=== PATIENT | female | born 1975 | race African-American/Black ===

== ENCOUNTER → 2018-06-30 | Outpatient (CLI) | payer SELFPAY ==
--- NOTE | 2018-06-30 16:14 | RADIOLOGY REPORT (SQ) ---
EXAM DESCRIPTION: U/S [id number] TRNABD 1GES W/ODOP COMPLETED DATE/TIME: 06/30/2018 3:01 pm REASON FOR STUDY: ENCNTR FOR SUPRVSN OF NORMAL FIRST PREG, FIRST TRIMESTER Z34.01 ENCNTR FOR SUPRVS N OF NORMAL FIRST PREG, FIRST TRIMES COMPARISON: None. TECHNIQUE: Transabdominal static and realtime grayscale images acquired of the pelvis. Additional se lected spectral and color Doppler images recorded. All images stored on PACs. bHCG: Not available. CLINICAL DATES: 9 weeks 0 days LIMITATIONS: None. FINDINGS: FETUS: Single Living intrauterine . ULTRASOUND EGA: 9 weeks 1 day ULTRASOUND ZARINA: 02/01/2019 EFW: Not applicable less than 20 weeks. CRL: 2.5 cm FHR: 160 beats per minute. SURVEY: No visualized anomalies. AMNIOTIC FLUID: Adequate amount. PLACENTA: Not yet developed due to early gestation. SUBCHORIONIC BLEED: No. SIZE OF BLEED: Not applicable. UTERUS: Multiple fibroids measuring up to 6 cm. CERVICAL LENGTH: 3.1 cm. Closed. RIGHT ADNEXA: Normal ovary with normal vascular flow. No adnexal free fluid. No adnexal masses. LEFT ADNEXA: Ovary not identified due to poor acoustical window. No adnexal free fluid. No adnexal masses. FREE FLUID: None. OTHER: No other significant finding. IMPRESSION: LIVING INTRAUTERINE . EGA 9 weeks 1 day. Trimester of : First - 0 to 13 weeks. TECHNICAL DOCUMENTATION: JOB ID: [id number] [employer]- All Rights Reserved Reading location - IP/workstation name: [email or web address]
== END ==
LOC: RAD 13:56
PROVIDERS: ATTEND Midwife
DX: Z34.01 Encounter for supervision of normal first pregnancy, first trimester (principal)
CPT/HCPCS: 76801

== ENCOUNTER → 2018-08-07 | Outpatient (CLI) | payer MEDICAID ==
--- NOTE | 2018-08-07 15:57 | RADIOLOGY REPORT (SQ) ---
EXAM DESCRIPTION: U/S OB 14+ TRNABD 1GES W/O DOP COMPLETED DATE/TIME: 08/07/2018 3:16 pm REASON FOR STUDY: O26.849 UTERINE SIZE-DATE DISCREPANCY, UNSPECIFIED TRIMESTER O26.849 UTERINE SIZE -DATE DISCREPANCY, UNSPECIFIED TRIMESTER COMPARISON: 06/30/2018 TECHNIQUE: Static and Dynamic grayscale imaging performed of gravid uterus using transabdominal appr oach. Additional selected color Doppler and spectral images recorded. All stored on PACS. LIMITATIONS: None. FINDINGS: FETUSES SEEN:1 EGA: 15 weeks 3 days Calculated using BPD,FL,HC,AC documented on images. No discrepancy with clinica l dates. ZARINA: 01/26/2019 EFW: Not calculated in grams PERCENTILE: Not calculated LV P: 5 cm PLACENTA: Anterior GRADE: I PRESENTATION: Cephalic. ANATOMY: HEART RATE: 149 beats per minute. FOUR CHAMBER HEART: Not confirmed THREE VESSEL CORD: Yes. CORD INSERTION: Visualized. KIDNEYS AND BLADDER: Bladder normal. Kidneys not well seen. STOMACH: Visualized. Appears normal. SPINE: Not well seen. BRAIN AND LATERAL VENTRICLES: Not well seen. OTHER: Left ovary measured 3.8 x 1.9 x 2.9 cm with positive blood flow. Uterine fibroids are present . 1 appears to be pedunculated and measures 6.9 cm in largest diameter. MATERNAL ADNEXA: Maternal ovaries not visualized. CERVICAL LENGTH: 4.8 cm. Closed. OTHER: No other significant finding. IMPRESSION: Live intrauterine gestation ESTIMATED GESTATIONAL AGE 15 weeks 3 days No visualized anomalies, but evaluation anatomy was slightly limited. Uterine fibroids. Trimester of : Second trimester - 13 weeks 1 day to 27 weeks 6 days. TECHNICAL DOCUMENTATION: JOB ID: [id number] [employer]- All Rights Reserved Reading location - IP/workstation name: [email or web address]
== END ==
LOC: RAD 12:50
PROVIDERS: ATTEND Midwife
DX: O26.849 Uterine size-date discrepancy, unspecified trimester (principal); Z3A.00 Weeks of gestation of pregnancy not specified
CPT/HCPCS: 76805

== ENCOUNTER 2019-01-19 10:42 | Inpatient (IN) | payer MEDICAID ==
--- NOTE | 2019-01-19 15:19 | RADIOLOGY REPORT (SQ) ---
EXAM DESCRIPTION: U/S PROFILE W/O STRESS COMPLETED DATE/TIME: 01/19/2019 3:06 pm REASON FOR STUDY: nonreactive NST COMPARISON: 08/07/2018 TECHNIQUE: Limited gracia-scale realtime and static images of the fetus to measure specified parameter s. LIMITATIONS: None. FINDINGS: HEART RATE: 137 beats per minute. EVER: 21.7 cm. BREATHING MOVEMENT: 0 point MOVEMENT: 0 point POSTURE AND TONE: 0 point dx QUALITATIVE EVER: 2 points. OTHER: No other significant finding. IMPRESSION: BIOPHYSICAL PROFILE: 8. Trimester of : Third - 28 weeks to delivery COMMENT: BREATHING MOVEMENTS: 2 POINTS: PRESENT 0 POINTS: ABSENT MOTION: 2 POINTS: PRESENT 0 POINTS: ABSENT TONE: 2 POINTS: PRESENT 0 POINTS: ABSENT AMNIOTIC FLUID VOLUME: 2 POINTS: LARGEST POCKET GREATER THAN 2 CM DEPTH. 0 POINTS: NO POCKET OF 2 CM. TECHNICAL DOCUMENTATION: JOB ID: [id number] [employer]- All Rights Reserved Reading location - IP/workstation name: [email or web address]
[2019-01-19] MEDS ORDERED: DINOPROSTONE 10 MG VAGINAL INSERT.SR PV PRN (15:44)
[2019-01-19] MEDS ORDERED: RINGERS SOLUTION,LACTATED 300 ML IV ONE (15:44)
--- NOTE | 2019-01-19 15:51 | Admission Physical ---
Datetime Report Generated by CPN: 01/19/2019 15:50 CURRENT ADMISSION Chief Complaint: Sent from OB Office for Evaluation and Treatment - Please Specify Chief Complaint Other: Sent from A for repeat NST Indication for Induction: Indicated by Testing Admit Impression : No Active Labor Admit Impression- Other: Pt had approximately 3 late decelerations in the course of 4 hrs of monitoring, otherwise Cat 1 tracing. BPP 2/8 today. Admit Plan: Initiate Labor Induction Protocol Admit Plan- Other: AMA +AFP, Neg NIPS 6cm Fibroid ALLERGIES Medication Allergies: Yes Medication Allergies: erythromycin base (01/19/2019) Latex: No Latex Allergies Food Allergies: lactose intolerant OBSTETRICAL HISTORY EDC: 02/02/2019 00:00 : 1 Para: 0 Term: 0 : 0 SAB: 0 IAB: 0 Ectopic: 0 Livin Cesareans: 0 VBACs: 0 Multiple Births: 0 Gestational Diabetes: No Incompetent Cervix: No Infertility: No SEE RECORDS Alcohol: No Marijuana : No Cocaine: No Other Illicit Drugs: No Cigarettes: Never Smoker. [id number] MEDICAL HISTORY Kidney Disease: Yes Medical History Comments: PCOS, UTIs, anemia, PHYSICAL EXAM General: Normal HEENT: Deferred Neurologic: Deferred Thyroid: Deferred Heart: Normal Lungs: Normal Breast: Deferred Back: Deferred Abdomen: Normal Genitourinary Exam: Normal Extremities: Normal DTRs: Deferred Pelvic Type: Adequate Vital Signs: Reviewed VAGINAL EXAM Dilatation: 0 Effacement: 0 Station: -3 MEMBRANES Membranes: Intact FETUS A EGA: 38.0 Admit Comment: GBS Neg PLANS FOR LABOR AND DELIVERY Labor and Delivery: None Pain Management: Epidural Feeding Preference: Breast Benefit of Breast Feed Discussed: Yes Circumcision: N/A INFORMED CONSENT Assignment: Cheri Goff MD Signature: with User ID: [email or web address] : with User ID: [email or web address]
[2019-01-19 16:32] LABS: APPEARANCE,URINE SLIGHTLY-CLOUDY; BILIRUBIN,URINE NEGATIVE (NEGATIVE); COLOR,URINE YELLOW; GLUCOSE, URINE 50 mg/dL (NEGATIVE); KETONES,URINE NEGATIVE (NEGATIVE); LEUKOCYTE ESTERASE,URINE NEGATIVE (NEGATIVE); NITRITE,URINE NEGATIVE (NEGATIVE); PROTEIN,URINE NEGATIVE (NEGATIVE); URINE SPECIFIC GRAVITY 1.006; UROBILINOGEN,URINE NEGATIVE mg/dL (<2.0)
[2019-01-19] MEDS ORDERED: DINOPROSTONE 10 MG VAGINAL INSERT.SR ONE (16:49)
[2019-01-19 16:55] LABS: URINE AMPHETAMINES SCREEN NEGATIVE; URINE BARBITURATES SCREEN NEGATIVE; URINE BENZODIAZEPINES SCREEN NEGATIVE; URINE COCAINE SCREEN NEGATIVE; URINE MARIJUANA (THC) SCREEN NEGATIVE; URINE METHADONE SCREEN NEGATIVE; URINE PHENCYCLIDINE SCREEN NEGATIVE
[2019-01-19 17:33] LABS: HEMATOCRIT 32.2 % (36.0-47.0); HEMOGLOBIN 10.2 g/dL (12.0-15.5); MEAN CORPUSCULAR HEMOGLOBIN 23.7 pg (27.0-33.4); MEAN CORPUSCULAR HGB CONC 31.8 g/dL (32.0-36.0); MEAN CORPUSCULAR VOLUME 74 fl (80-97); PLATELET COUNT 230 10^3/uL (150-450); RED BLOOD COUNT 4.33 10^6/uL (3.72-5.28); RED CELL DISTRIBUTION WIDTH 20.4 % (11.5-14.0)
[2019-01-19 17:55] LABS: ABSOLUTE LYMPHOCYTES# (MANUAL) 2.3 10^3/uL (0.5-4.7); ABSOLUTE MONOCYTES # (MANUAL) 0.3 10^3/uL (0.1-1.4); BAND NEUTROPHILS % (MANUAL) 2 % (3-5); BASOPHILS % (MANUAL) 0 % (0-2); EOSINOPHILS % (MANUAL) 2 % (0-6); LYMPHOCYTES % (MANUAL) 39 % (13-45); METAMYELOCYTES % (MANUAL) 1 % (0); MONOCYTES % (MANUAL) 5 % (3-13); SEGMENTED NEUTROPHILS % (MAN) 51 % (42-78); TOTAL CELLS COUNTED 100
[2019-01-19 17:56] LABS: ANISOCYTOSIS 2+; OVALOCYTES SLIGHT; PLATELET COMMENT ADEQUATE; POIKILOCYTOSIS SLIGHT; POLYCHROMASIA SLIGHT
[2019-01-20] MEDS ORDERED: MISOPROSTOL 0.1 MG TABLET PO ONE (06:49)
[2019-01-20] MEDS ORDERED: MISOPROSTOL 0.1 MG TABLET PV ONE (06:50)
[2019-01-20] MEDS ORDERED: MISOPROSTOL 0.1 MG TABLET ONE (11:02)
[2019-01-20] MEDS ORDERED: PHENYLEPHRINE HCL INJ/PF 10 MG/1 ML SDV ONE (15:55)
[2019-01-20] MEDS ORDERED: EPHEDRINE SULFATE INJ 50 MG/1 ML AMPULE ONE (15:55)
[2019-01-20] MEDS ORDERED: FENTANYL CITRATE INJ/PF 100 MCG/2 ML AMPUL ONE (15:55)
[2019-01-20] MEDS ORDERED: BUPIVACAINE HCL 0.25 % INJ/PF (2.5 MG/1 ML) 30 ML VIAL ONE (15:56)
[2019-01-20] MEDS ORDERED: FENTANYL/BUPIVACAINE/NS/PF 300 MCG/150 ML RTUINJ EPI ONE (15:56)
[2019-01-20] MEDS ORDERED: LIDOCAINE 1% INJ-PF (10 MG/ML) 30 ML SDV ONE (15:57)
[2019-01-20] MEDS ORDERED: OXYTOCIN 10 UNIT/ML VIAL ONE (15:57)
[2019-01-20] MEDS ORDERED: MISOPROSTOL 0.2 MG TABLET ONE (15:57)
[2019-01-20] MEDS ORDERED: OXYTOCIN/NORMAL SALINE 0 UNIT/0 ML RTUINJ ONE (15:58)
[2019-01-20] MEDS: RINGERS SOLUTION,LACTATED 1,000 ML IV PRN ×2 (16:43→17:49)
[2019-01-20] MEDS ORDERED: SODIUM BICARBONATE 8.4% INJ 50 MEQ/50 ML DISP.SYRIN ONE (21:36)
[2019-01-20] MEDS ORDERED: LIDOCAINE 2%/EPINEPHRINE INJ 20 ML VIAL ONE (21:36)
[2019-01-21] MEDS ORDERED: NA PHOS,M-B/NA PHOS,DI-BA (ADULT) 133 ML ENEMA PR ONE ×2 (02:42→02:43)
[2019-01-21] MEDS ORDERED: FENTANYL/BUPIVACAINE/NS/PF 300 MCG/150 ML RTUINJ EPI ONE (03:31)
[2019-01-21] MEDS ORDERED: CEFAZOLIN INJ 1 GM VIAL ONE (04:44)
[2019-01-21] MEDS ORDERED: CITRIC ACID/SODIUM CITRATE ORAL SOLN 15 ML UDCUP ONE (04:44)
[2019-01-21] MEDS ORDERED: AZITHROMYCIN INJ 500 MG VIAL IV ONE (04:46)
[2019-01-21] MEDS ORDERED: ONDANSETRON HCL INJ/PF 4 MG/2 ML SDV ONE (04:51)
[2019-01-21] MEDS ORDERED: PROPOFOL INJ 200 MG/20 ML VIAL IV ONE (04:51)
[2019-01-21] MEDS ORDERED: OXYTOCIN 10 UNIT/ML VIAL ONE (04:51)
[2019-01-21] MEDS ORDERED: ACETAMINOPHEN 1,000 MG/100 ML RTUPB IV ONE (04:51)
[2019-01-21] MEDS ORDERED: KETOROLAC TROMETHAMINE INJ/PF 30 MG/1 ML SDV ONE (04:51)
[2019-01-21] MEDS ORDERED: SUCCINYLCHOLINE CHLORIDE INJ 200 MG/10 ML VIAL ONE (04:51)
--- NOTE | 2019-01-21 04:51 | PDOC PROGRESS REPORT ---
Subjective Progress Note for:: 01/21/19 Subjective:: Called to patients bedside due to repetitive late decelerations in heart tracing. No response to fluids, O2 and repositiioning. No pitocin running. Regular ctx and epidural is not managing pain any longer. Discussed tracing with patient and her mother. Discussed CD and risk and benefits. Recommend due to heart tracing iwht continued late decelera tions. Consent signed. Anesthesia and OR notified. Reason For Visit: IUP @ 38 WEEKS,IOL Physical Exam - Physical Exam Vital Signs: Intake & Output 01/19/19 01/20/19 01/21/19 06:59 06:59 06:59 Intake Total 138 Balance 138 Weight 73.6 kg Result Laboratory Results: 01/19/19 17:07 Impressions: Stress Test 01/19/19 11:45 IMPRESSION: BIOPHYSICAL PROFILE: 05/23. Trimester of : Third - 28 weeks to delivery Assessment & Plan - Time Time Spent with patient: Less than 15 minutes
[2019-01-21] MEDS ORDERED: FENTANYL CITRATE INJ/PF 100 MCG/2 ML AMPUL ONE (04:52)
[2019-01-21] MEDS: RINGERS SOLUTION,LACTATED 1,000 ML IV PRN ×2 (04:55→17:44)
[2019-01-21] MEDS ORDERED: OXYTOCIN/NORMAL SALINE 20 UNIT/1,000 ML RTUINJ IV PRN ×2 (06:29→08:37)
[2019-01-21] MEDS ORDERED: ZOLPIDEM TARTRATE 5 MG TABLET PO PRN (06:29)
[2019-01-21] MEDS ORDERED: ACETAMINOPHEN 650 MG SUPP.RECT PR PRN ×2 (06:29→09:30)
[2019-01-21] MEDS ORDERED: PSEUDOEPHEDRINE HCL 30 MG TABLET PO PRN (06:29)
[2019-01-21] MEDS ORDERED: DIPH/PERTUSS(ACELL)/TETANUS VAC/PF 0.5 ML SYR (>=10YO) IM PRN ×2 (06:29→08:37)
[2019-01-21] MEDS ORDERED: GLYCERIN/WITCH HAZEL LEAF 1 EACH MED..WIPE TP PRN (06:29)
[2019-01-21] MEDS ORDERED: BENZOCAINE/MENTHOL AEROSOL SPRAY 56 ML TOP PRN (06:29)
[2019-01-21] MEDS ORDERED: PROMETHAZINE HCL INJ 25 MG/1 ML VIAL IV PRN ×2 (06:29→08:37)
[2019-01-21] MEDS ORDERED: PROMETHAZINE HCL 25 MG SUPP.RECT PR PRN (06:29)
[2019-01-21] MEDS ORDERED: PROMETHAZINE HCL 25 MG TABLET PO PRN (06:29)
[2019-01-21] MEDS ORDERED: ACETAMINOPHEN WITH CODEINE #3 TABLET PO PRN ×2 (06:29)
[2019-01-21] MEDS ORDERED: DIPHENHYDRAMINE HCL 25 MG CAPSULE PO PRN (06:29)
[2019-01-21] MEDS ORDERED: NA PHOS,M-B/NA PHOS,DI-BA (ADULT) 133 ML ENEMA PR PRN (06:29)
[2019-01-21] MEDS ORDERED: DIBUCAINE 1% OINTMENT 56 GM TP PRN (06:29)
[2019-01-21] MEDS ORDERED: MAGNESIUM HYDROXIDE SUSP 30 ML UDCUP PO PRN (06:29)
[2019-01-21] MEDS ORDERED: MEASLES,MUMPS&RUBELLA VACC/PF 0.5 ML VIAL SUBCUT PRN ×2 (06:29→08:37)
--- NOTE | 2019-01-21 06:52 | Operative Report ---
Operative Report DATE OF SURGERY: 01/21/19 PREOPERATIVE DIAGNOSIS: IUP at 38.2 wks EGA. Non-reassuring testing: BPP 2/8. Failure to progress in labor. Non-reassuring heart tracing: repetetive decelerations POSTOPERATIVE DIAGNOSIS: Same as above OPERATION: Primary Section SURGEON: BERT BAL 1ST MANAGER OF SCHOOL: MOLLY HERRERA ANESTHESIA: GA TISSUE REMOVED OR ALTERED: Placenta COMPLICATIONS: None ESTIMATED BLOOD LOSS: 1,100 INTRAOPERATIVE FINDINGS: Uterus with multiple fibroids-largest was 6 cm on left fundus. Bilateral fallopian tubes and ovaries appear normal. Viable female in vertex presentation deep in pelvis. Anterior placenta. PROCEDURE: IV fluids: per anesthesia record Urinary output: per anesthesia record- clear yellow Findings: Uterus with multiple fibroids largest on left fundus measuring 6 cm. Bilateral fallopian tubes and ovaries normal. Anterior placenta. Viable female in vertex presentation. Position: To recovery room in stable condition Description of procedure: The patient was taken to the operating room and general anesthesia was administered and found to be adequate. She was then placed on the OR table in the supine position with a slight leftward tilt. Patient was prepped and draped in usual sterile fashion. Ancef 2 gms was given IV prior to the procedure for infection prophylaxis. Timeout was taken. A Pfannenstiel skin incision was then made approximately 3 cm above the pubic symphysis and carried down to level the rectus fascia. The rectus fascia was then nicked in the midline with a scalpel and the fascial incision was extended laterally with use of curved Flor scissors. The rectus fascia was then grasped with 2 Kocker clamps elevated and the underlying rectus muscle was dissected off both bluntly and sharply. Any bleeding controlled with cautery. The rectus muscles were then split in the midline and the peritoneum was entered. The peritoneal incision was then extended by manually stretching the peritoneum. The bladder blade was positioned. A bladder flap was created using pickups and metzenbaum scissors. The bladder was noted to be out of harm's way. A scalpel was then used in the lower uterine for the hysterotomy, slowly until amniotomy was obtained a small amount of fluid was noted. Placenta was anterior. The uterine incision was then manually stretched. The was noted to be in vertex postion -deep in the pelvis. Using a hand deep in pelvis and food service assistant from RN below, the head was elevated and brought to the hysterotomy incision. The head then delivered with minmal difficulty. The shoulders and the rest of the body followed immediately. The cord was cut clamped and the was handed off to the nurse awaiting. Infant was crying prior to hand off. The placenta was manually delivered. Using a lap gauze the uterus was cleared of all clots and debris. I attempted to exteriorize the uterus but due to the size of fibriods the uterus was left in place. A bladder blade was repositioned. The uterine incision was then closed with 0 Chromic suture in a running locked fashion. A second layer of the same suture was used in a running locked imbricated fashion. The uterine incision was inspected and noted to be hemostatic. Retractor was removed. The posterior aspect of the uterus was then inspected and anatomy was seen as above. The uterus was returned to its normal anatomic position within the abdominal cavity. Warm saline irrigation was used to clear all clots and debris from the abdomen. The uterine incision was inspected once more and noted to remain hemostatic. The bladder blade was removed and the peritoneum was closed with 2-0 chromic in a running fashion. The rectus muscles were then reapproximated and the rectus fascia was closed with a #1 PDS in a running fashion. The subcutaneous tissue was then inspected and any bleeding was controlled with Bovie electrocautery. The subcutaneous tissue was then closed with 2-0 Plain Gut suture in a running fashion. The skin was then closed with 4-0 Monocryl in a running subcuticular fashion. The skin incision was then clean dried and Dermabond was applied over the skin incision. All instrument sponge and needle counts were correct x3 for the procedure the patient tolerated the procedure well. She will proceed to recovery room in stable condition
[2019-01-21] MEDS ORDERED: OXYTOCIN/NORMAL SALINE 20 UNIT/1,000 ML RTUINJ ONE (07:56)
[2019-01-21] MEDS ORDERED: SIMETHICONE 80 MG TAB.CHEW PO PRN (08:37)
[2019-01-21] MEDS ORDERED: DEXTROSE 50%-WATER 25 GM/50 ML DISP.SYRIN IV PRN ×2 (08:37)
[2019-01-21] MEDS ORDERED: DEXTROSE 40% GEL 15 GM TUBE PO PRN ×2 (08:37)
[2019-01-21] MEDS ORDERED: HYDROMORPHONE HCL INJ/PF 2 MG/ML AMPULE IV PRN (08:37)
[2019-01-21] MEDS ORDERED: ACETAMINOPHEN 325 MG TABLET PO PRN (08:37)
[2019-01-21] MEDS ORDERED: GLUCAGON,HUMAN RECOMB 1 MG INJ SUBCUT PRN (08:37)
[2019-01-21] MEDS ORDERED: OXYCODONE-ACETAMINOPHEN 5-325 MG TABLET PO PRN ×2 (08:37)
[2019-01-21] MEDS ORDERED: DOCUSATE SODIUM 100 MG CAPSULE PO SCH (10:00)
[2019-01-21] MEDS ORDERED: PRENATAL VITAMIN W DHA CAPSULE PO SCH (10:00)
[2019-01-21] MEDS: FAMOTIDINE 20 MG TABLET PO SCH ×2 (10:07→23:09)
[2019-01-21] MEDS: FERROUS SULFATE 325 MG TABLET PO SCH ×2 (10:07→17:31)
[2019-01-21] MEDS: DOCUSATE SODIUM 100 MG CAPSULE PO SCH ×2 (10:08→17:31)
[2019-01-21] MEDS: PRENATAL VITAMIN W DHA CAPSULE PO SCH (10:08)
[2019-01-21] MEDS: SENNOSIDES/DOCUSATE 8.6-50 MG 1 EACH TABLET PO SCH (10:08)
[2019-01-21] MEDS: KETOROLAC TROMETHAMINE INJ/PF 30 MG/1 ML SDV IV SCH ×2 (13:16→23:09)
[2019-01-21] MEDS ORDERED: IBUPROFEN 800 MG TABLET PO SCH ×2 (14:00)
[2019-01-22] MEDS: IBUPROFEN 800 MG TABLET PO SCH ×3 (06:10→22:36)
[2019-01-22 06:28] LABS: HEMATOCRIT 23.2 % (36.0-47.0); MEAN CORPUSCULAR HGB CONC 32.5 g/dL (32.0-36.0); MEAN CORPUSCULAR VOLUME 74 fl (80-97); PLATELET COUNT 189 10^3/uL (150-450); RED BLOOD COUNT 3.14 10^6/uL (3.72-5.28); RED CELL DISTRIBUTION WIDTH 23.4 % (11.5-14.0)
[2019-01-22 06:37] LABS: WHITE BLOOD COUNT 16.8 10^3/uL (4.0-10.5)
[2019-01-22 06:43] LABS: HEMOGLOBIN 7.5 g/dL (12.0-15.5)
[2019-01-22] MEDS ORDERED: INFLUENZA QUAD (6MOS+) 2019-20 VAC 0.5 ML SYR IM ONE (08:00)
--- NOTE | 2019-01-22 09:21 | PDOC PROGRESS REPORT ---
Subjective-OB Progress Note for:: 01/22/19 Subjective: Preparing for blood transfusion Physical Exam (OB) Vital Signs: Temp Pulse Resp BP Pulse Ox 98.7 F 90 16 104/56 L 96 01/22/19 07:43 01/22/19 07:43 01/22/19 07:43 01/22/19 07:43 01/22/19 07:43 Intake & Output 01/21/19 01/22/19 01/23/19 06:59 06:59 06:59 Intake Total 1138 1400 Output Total 1700 Balance 1138 -300 - General Note:: Flat affect - PIH/Pre-Eclampsia Headache: Absent Epigastric Pain: No Visual Changes: No - Dressing Removed: No - opsite D&I Incision: Well Approximated - Lochia Lochia Amount: Small 10-25 ml Lochia Color: Rubra/Red - Abdomen Description: Tender, Soft, Round Hernia Present: No Bowel Sounds: Normoactive Flatus Presence: Present Stool: No Fundal Description: Firm, Midline Fundal Height: u/u - u/2 > 4/u*- Describe: multiple fibroids Objective-Diagnostic Laboratory: 01/22/19 05:31 01/19/19 01/22/19 17:07 05:31 WBC 16.8 H D RBC 3.14 L Hgb 7.5 L D Hct 23.2 L MCV 74 L MCH 24.0 L MCHC 32.5 RDW 23.4 H Plt Count 189 Blood Type A POSITIVE Antibody Screen NEGATIVE
[2019-01-22] MEDS: FAMOTIDINE 20 MG TABLET PO SCH ×2 (09:29→22:36)
[2019-01-22] MEDS: SENNOSIDES/DOCUSATE 8.6-50 MG 1 EACH TABLET PO SCH (09:30)
[2019-01-22] MEDS: PRENATAL VITAMIN W DHA CAPSULE PO SCH (09:30)
[2019-01-22] MEDS: DOCUSATE SODIUM 100 MG CAPSULE PO SCH ×2 (09:30→17:36)
[2019-01-22] MEDS: FERROUS SULFATE 325 MG TABLET PO SCH (17:48)
[2019-01-23] MEDS: IBUPROFEN 800 MG TABLET PO SCH ×2 (05:10→13:53)
[2019-01-23 06:41] LABS: HEMATOCRIT 29.5 % (36.0-47.0); MEAN CORPUSCULAR HEMOGLOBIN 25.3 pg (27.0-33.4); MEAN CORPUSCULAR HGB CONC 32.8 g/dL (32.0-36.0); MEAN CORPUSCULAR VOLUME 77 fl (80-97); PLATELET COUNT 201 10^3/uL (150-450); RED BLOOD COUNT 3.82 10^6/uL (3.72-5.28); RED CELL DISTRIBUTION WIDTH 22.9 % (11.5-14.0); WHITE BLOOD COUNT 14.9 10^3/uL (4.0-10.5)
[2019-01-23 06:43] LABS: HEMOGLOBIN 9.7 g/dL (12.0-15.5)
[2019-01-23] MEDS: FAMOTIDINE 20 MG TABLET PO SCH (09:50)
[2019-01-23] MEDS: SENNOSIDES/DOCUSATE 8.6-50 MG 1 EACH TABLET PO SCH (09:50)
[2019-01-23] MEDS: PRENATAL VITAMIN W DHA CAPSULE PO SCH (09:50)
[2019-01-23] MEDS: DOCUSATE SODIUM 100 MG CAPSULE PO SCH (09:50)
[2019-01-23] MEDS: FERROUS SULFATE 325 MG TABLET PO SCH (09:51)
--- NOTE | 2019-01-23 12:02 | PDOC DISCHARGE SUMMARY ---
Impression - Admit/DC Date/PCP Admission Date/Primary Care Provider: 01/19/19 15:10 ROXANA NAQVI MD Discharge Date: 01/23/19 - Discharge Diagnosis (1) Acute blood loss anemia Is this a current diagnosis for this admission?: Yes (2) Blood transfusion during current hospitalisation Is this a current diagnosis for this admission?: Yes (3) Delivery by emergency caesarean section Is this a current diagnosis for this admission?: Yes (4) Non-reassuring heart rate or rhythm affecting management of fetus Is this a current diagnosis for this admission?: Yes (5) Is this a current diagnosis for this admission?: Yes - Additional Information Discharge Diet: Regular Discharge Activity: No Lifting/Push/Pulling, Pelvic Rest, No tub bath Referrals: [facility] [Provider Group] (Please call and schedule a 1 week follow up for an incision check.) Prescriptions: Ibuprofen [Motrin 800 mg Tablet] 800 mg PO Q8HP PRN #60 tablet PRN Reason: Oxycodone HCl/Acetaminophen [Percocet 5-325 mg Tablet] 1 tab PO Q4HP PRN #30 tablet PRN Reason: Home Medications: Vits96/Iron Fum/Folic [ Tablet] 1 tab PO DAILY 01/19/19 Docusate Sodium [Colace 100 mg Capsule] 100 mg PO BID capsule 01/23/19 Ferrous Sulfate [Feosol 325 mg Tablet] 325 mg PO BID tablet 01/23/19 Ibuprofen [Motrin 800 mg Tablet] 800 mg PO Q8HP PRN #60 tablet 01/23/19 Oxycodone HCl/Acetaminophen [Percocet 5-325 mg Tablet] 1 tab PO Q4HP PRN #30 tablet 01/23/19 HPI Gestational Age: 38+2 Reason(s) for Admission: Induction of Labor - for nonreassuring assessment-NR NST followed by BPP 05/23 Procedures: NST, Other - BPP Intrapartum Procedure(s): : Low Cervical, Transverse Hospital Course Hospital Course: admitted for IOL secondary to nonreassuring surveillance. failure to progress, the underwent primary c/s for viable female . QBL was 1313, HGB 7.5 post , she recieved blood transfusion with now HGB of 9.7 and stable Results Laboratory Results: WBC 14.9 10^3/uL (4.0-10.5) H 01/23/19 05:58 RBC 3.82 10^6/uL (3.72-5.28) 01/23/19 05:58 Hgb 9.7 g/dL (12.0-15.5) L D 01/23/19 05:58 Hct 29.5 % (36.0-47.0) L 01/23/19 05:58 MCV 77 fl (80-97) L 01/23/19 05:58 MCH 25.3 pg (27.0-33.4) L 01/23/19 05:58 MCHC 32.8 g/dL (32.0-36.0) 01/23/19 05:58 RDW 22.9 % (11.5-14.0) H 01/23/19 05:58 Plt Count 201 10^3/uL (150-450) 01/23/19 05:58 Lymph % (Auto) Not Reportable 01/19/19 17:07 Alfalfa % (Auto) Not Reportable 01/19/19 17:07 Eos % (Auto) Not Reportable 01/19/19 17:07 Baso % (Auto) Not Reportable 01/19/19 17:07 Absolute Neuts (auto) Not Reportable 01/19/19 17:07 Absolute Lymphs (auto) Not Reportable 01/19/19 17:07 Absolute Monos (auto) Not Reportable 01/19/19 17:07 Absolute Eos (auto) Not Reportable 01/19/19 17:07 Absolute Basos (auto) Not Reportable 01/19/19 17:07 Total Counted 100 01/19/19 17:07 Seg Neutrophils % Not Reportable 01/19/19 17:07 Seg Neuts % (Manual) 51 % (42-78) 01/19/19 17:07 Band Neutrophils % 2 % (3-5) L 01/19/19 17:07 Lymphocytes % (Manual) 39 % (13-45) 01/19/19 17:07 Monocytes % (Manual) 5 % (3-13) 01/19/19 17:07 Eosinophils % (Manual) 2 % (0-6) 01/19/19 17:07 Basophils % (Manual) 0 % (0-2) 01/19/19 17:07 Metamyelocytes % 1 % (0) H 01/19/19 17:07 Abs Neuts (Manual) 3.2 10^3/uL (1.7-8.2) 01/19/19 17:07 Abs Lymphs (Manual) 2.3 10^3/uL (0.5-4.7) 01/19/19 17:07 Abs Monocytes (Manual) 0.3 10^3/uL (0.1-1.4) 01/19/19 17:07 Absolute Eos (Manual) 0.1 10^3/uL (0.0-0.6) 01/19/19 17:07 Abs Basophils (Manual) 0.0 10^3/uL (0.0-0.2) 01/19/19 17:07 Platelet Comment ADEQUATE 01/19/19 17:07 Polychromasia SLIGHT 01/19/19 17:07 Poikilocytosis SLIGHT 01/19/19 17:07 Anisocytosis 2+ 01/19/19 17:07 Microcytosis 1+ 01/19/19 17:07 Ovalocytes SLIGHT 01/19/19 17:07 Urine Color YELLOW 01/19/19 14:00 Urine Appearance SLIGHTLY-CLOUDY 01/19/19 14:00 Urine pH 7.0 (5.0-9.0) 01/19/19 14:00 Ur Specific [place] 1.006 01/19/19 14:00 Urine Protein NEGATIVE mg/dL (NEGATIVE) 01/19/19 14:00 Urine Glucose (UA) 50 mg/dL (NEGATIVE) H 01/19/19 14:00 Urine Ketones NEGATIVE mg/dL (NEGATIVE) 01/19/19 14:00 Urine Blood NEGATIVE (NEGATIVE) 01/19/19 14:00 Urine Nitrite NEGATIVE (NEGATIVE) 01/19/19 14:00 Urine Bilirubin NEGATIVE (NEGATIVE) 01/19/19 14:00 Urine Urobilinogen NEGATIVE mg/dL (<2.0) 01/19/19 14:00 Ur Leukocyte Esterase NEGATIVE (NEGATIVE) 01/19/19 14:00 Urine Ascorbic Acid NEGATIVE (NEGATIVE) 01/19/19 14:00 Urine Opiates Screen NEGATIVE 01/19/19 14:00 Urine Methadone Screen NEGATIVE 01/19/19 14:00 Ur Barbiturates Screen NEGATIVE 01/19/19 14:00 Ur Phencyclidine Scrn NEGATIVE 01/19/19 14:00 Ur Amphetamines Screen NEGATIVE 01/19/19 14:00 U Benzodiazepines Scrn NEGATIVE 01/19/19 14:00 Urine Cocaine Screen NEGATIVE 01/19/19 14:00 U Marijuana (THC) Screen NEGATIVE 01/19/19 14:00 RPR NONREACTIVE (NONREACTIVE) 01/19/19 17:07 Blood Type A POSITIVE 01/19/19 17:07 Blood Type Confirm A POSITIVE 01/22/19 07:50 Antibody Screen NEGATIVE 01/19/19 17:07 Crossmatch See Detail 01/19/19 17:07 Impressions: Stress Test 01/19/19 11:45 IMPRESSION: BIOPHYSICAL PROFILE: 05/23. Trimester of : Third - 28 weeks to delivery Plan Plan of Treatment: follow up at [facility] in one week for incision check
[2019-01-23 12:36] VITALS: BP 95/58
--- NOTE | 2019-01-26 15:09 | Delivery Summary ---
Del Sum A-C Datetime Report Generated by CPN: 01/26/2019 15:08 DELIVERY PERSONNEL DELIVERY PERSONNEL: [id number] Delivery Doctor:: Brennan Garrett MD Delivery Doctor:: Dr Brennan Garrett Anesthesiologist:: Natalie Chahal MD Anesthesiologist:: Natalie Chahal MD DREDGE OPERATOR:: Va Wallerin DREDGE OPERATOR DREDGE OPERATOR:: Va Wilkinsin DREDGE OPERATOR Labor and Delivery Nurse:: JINNY Gillespie Carpet Mechanic:: JINNY Gillespie Carpet Mechanic:: JINNY Gillespie Nurse Practitioner:: LILIANA Nascimento Nursery Nurse:: Mónica Downing RN Insights Analyst/SYSTEMS PROTECTION TECHNICIAN: ST Alisha Insights Analyst/SYSTEMS PROTECTION TECHNICIAN: ST Alisha Insights Analyst/SYSTEMS PROTECTION TECHNICIAN: Brigette Waldo MMD UNIT TEACHER Insights Analyst/SYSTEMS PROTECTION TECHNICIAN: Brigette Waldo mold filler MATERNAL INFORMATION Delivery Anesthesia: Spinal Medications After Delivery: Pitocin Drip 20 Units/1000ml NSS Estimated Blood Loss (ml): 900 Delivery QBL: 880 Maternal Complications: None LABOR SUMMARY EDC: 02/02/2019 00:00 No. Babies in Womb: 1 Attempted: No Labor Anesthesia: Epidural LABOR INFORMATION Reason for Induction: Indicated by Testing; Other Onset of Labor: 01/21/2019 18:30 Cervical Ripening Agents: Cervidil; Cytotec @ Cervical Ripening Agents: Cervidil Oxytocin: N/A Group B Beta Strep: NEGATIVE Antibiotics # of Doses: ancef 2 grams for c/s Antibiotics Time of Last Dose: 0458 Name of Antibiotic Given: Ancef Steroids Given: None Reason Steroids Not Administered: Not Applicable MEMBRANES Membranes Rupture Method: Artificial Rupture of Membranes: 01/20/2019 18:32 Length of Rupture (hr): 11.07 Amniotic Fluid Color: Clear Amniotic Fluid Amount: Large Amniotic Fluid Odor: None STAGES OF LABOR Stage 3 hr: 0 Stage 3 min: 1 Total Time in Labor hr: -12 Total Time in Labor min: -53 VAGINAL DELIVERY Sponge Count Correct: N/A Sharps Count Correct: N/A CSECTION DELIVERY Primary Indication: Nonreassuring Status Secondary Indication: Failure of Descent CSection Urgency: Non-Scheduled CSection Incidence: Primary Labor: Labor Elective: Nonelective CSection Incision: Lower Uterine Transverse BABY A INFORMATION Delivery Date/Time: 01/21/2019 05:36 Method of Delivery: Born in Route : No : N/A Forceps: N/A Vacuum Extraction: Successful Shoulder Dystocia : No ASSISTED DELIVERY BABY A Indication for Assisted Delivery: low in pelvis Catheter Prior to Procedure: Yes Station Vacuum/Forcep Apply: 0 Position Vacuum/Forcep Apply: Left Occipital Transverse Vacuum Number of Pulls: 1 Vacuum Number of PopOffs: 0 Vacuum Maximum Pressure Obtained: 550 Reduce Pressure btwn Ctx: No Vacuum Color Straining Bag Washer: kiwi Total Time Vacuum Applied: 30 PRESENTATION/POSITION BABY A Presentation: Cephalic Presentation: Cephalic Presentation: Cephalic Presentation: Cephalic Cephalic Presentation: Vertex Vertex Position: Left Occipital Transverse Breech Presentation: N/A PLACENTA INFORMATION BABY A Placenta Delivery Time : 01/21/2019 05:37 Placenta Method of Delivery: Manual Removal Placenta Status: Delivered SCORES BABY A Heart Rate 1 min: >100 bpm Resp Effort 1 min: Good Cry Reflex Irritability 1 min: Cough or Sneeze or Pulls Away Muscle Tone 1 min: Active Motion Color 1 min: Blue/Pale Resuscitation Effort 1 min: Tactile Stimulation SCORE 1 MIN: 8 Heart Rate 5 min: >100 bpm Resp Effort 5 min: Good Cry Reflex Irritability 5 min: Cough or Sneeze or Pulls Away Muscle Tone 5 min: Active Motion Color 5 min: Body [place], Extremities Blue SCORE 5 MIN: 9 INFANT INFORMATION BABY A Gestational Age at Delivery: 38.1 Gestational Status: Early Term- 37- 38.6 Weeks Outcome : Liveborn Condition : Stable Infant Sex: Female WEIGHT/LENGTH BABY A Birthweight (gm): 3820 Weight (lb): 8 Weight (oz): 7 Length (in): 20.50 Length (cm): 52.07 CORD INFORMATION BABY A No. Cord Vessels: 3 Nuchal Cord : N/A Cord Blood Taken: Yes-For Storage (Mom's Blood type +) Suction: Mouth; Nose ASSESSMENT BABY A Infant Complications: Multiple Late Decels; Multiple Variable Decels; Other Complications- Other: BPP- 2/8 Skin to Skin: Yes Skin to Skin Time (min): 20 BABY B INFORMATION : N/A SIGNATURES : I was personally available for consultation and serving as supervising physician for the MLP.
== END 2019-01-23 15:50 | disposition home or self-care (01) | DRG 787 ==
LOC: LC 10:42 → LR 15:10 → 2N 01-21 08:45
PROVIDERS: ADMIT Obstetrics & Gynecology; ATTEND Obstetrics & Gynecology
PROC: 10D00Z1 Extraction of Products of Conception, Low, Open Approach (ICD-10-PCS; principal; 2019-01-21)
PROC: 30233N1 Transfusion of Nonautologous Red Blood Cells into Peripheral Vein, Percutaneous Approach (ICD-10-PCS; 2019-01-22)
DX: O76 Abnormality in fetal heart rate and rhythm complicating labor and delivery (principal); O34.13 Maternal care for benign tumor of corpus uteri, third trimester; D62 Acute posthemorrhagic anemia; O99.02 Anemia complicating childbirth; Z3A.38 38 weeks gestation of pregnancy; O62.2 Other uterine inertia; D25.9 Leiomyoma of uterus, unspecified; Z37.0 Single live birth
CPT/HCPCS: 1961; 36415; 36430; 76819; 80307; 81005; 85025; 85027; 86592; 86850; 86900; 86901; 86920; 88307; 90686; 94799; J0131; J0330; J0456; J0690; J1170; J1885; J2370; J2405; J2590; J2704; J3010; J3490; J7120; P9016